=== PATIENT | female | born 1975 | race Caucasian/White ===

== ENCOUNTER → 2016-12-11 | Outpatient (CLI) | payer BC ==
[2005-10-10 07:58] VITALS: TEMP 98.3
[~2016-12-11] MED LIST: BIRTH CONTROL
== END ==
LOC: MC.RAD 09:39
DX: Z12.31 Encounter for screening mammogram for malignant neoplasm of breast (principal)

== ENCOUNTER → 2017-10-31 | Outpatient (CLI) | payer BC ==
[2005-10-10 07:58] VITALS: TEMP 98.3
== END ==
LOC: MC.RAD 11:00
DX: N63.21 Unspecified lump in the left breast, upper outer quadrant (principal)

== ENCOUNTER → 2018-07-01 | Outpatient (CLI) | payer BC ==
[2005-10-10 07:58] VITALS: TEMP 98.3
== END ==
LOC: MHCPAIN 08:23
DX: G89.29 Other chronic pain (principal); M47.817 Spondylosis without myelopathy or radiculopathy, lumbosacral region; M54.16 Radiculopathy, lumbar region; M53.3 Sacrococcygeal disorders, not elsewhere classified
CPT/HCPCS: G0463

== ENCOUNTER → 2018-07-03 | Outpatient (CLI) | payer BC ==
[2005-10-10 07:58] VITALS: TEMP 98.3
== END ==
LOC: MHCPAIN 08:56
DX: M47.817 Spondylosis without myelopathy or radiculopathy, lumbosacral region (principal); M54.16 Radiculopathy, lumbar region
CPT/HCPCS: J1100; Q9967

== ENCOUNTER → 2018-07-15 | Outpatient (CLI) | payer BC ==
[2005-10-10 07:58] VITALS: TEMP 98.3
== END ==
LOC: MHCPAIN 09:18
DX: G89.29 Other chronic pain (principal); M47.817 Spondylosis without myelopathy or radiculopathy, lumbosacral region; M54.16 Radiculopathy, lumbar region; M53.3 Sacrococcygeal disorders, not elsewhere classified
CPT/HCPCS: G0463

== ENCOUNTER → 2020-04-19 | Outpatient (CLI) | payer BC ==
[2005-10-10 07:58] VITALS: TEMP 98.3
== END ==
LOC: MC.RAD 10:29
DX: Z12.31 Encounter for screening mammogram for malignant neoplasm of breast (principal)

== ENCOUNTER 2021-10-27 07:05 | Day surgery (SDC) | payer BC ==
[~2021-10-27] VITALS: Ht 167.6 cm; Wt 86.6 kg
[2021-10-27 08:55] VITALS: BP 113/65; PULSE 70; TEMP 97.5
--- NOTE | 2021-10-27 08:55 | NUR ---
The patient arrived back to [facility] from the endoscopy suite at this time. The patient appears alert and oriented and ambulated from the cart to the recliner in her room with the stand by assistance of two nurses and appeared to tolerate the activity well. Post procedure vital signs were started at this time. The patient agrees to try some orange juice at this time. Fresh warm blanket was provided. Call light is within reach. at bedside. Denies any further needs.
[2021-10-27] MEDS ORDERED: WELLBUTRIN SR150 M1 PO (09:05)
[2021-10-27] MEDS ORDERED: SINGULAIR4 MG/PACKE PO (09:05)
[2021-10-27 09:10] VITALS: BP 116/76; PULSE 65
--- NOTE | 2021-10-27 09:10 | NUR ---
The patient appeared to tolerate the juice well and denies wanting anything further at this time. remains at her bedside. Call light is within reach. Denies any further needs.
[2021-10-27 09:19] VITALS: BP 134/94; PULSE 76; TEMP 98.2
[2021-10-27 09:25] VITALS: BP 117/70; PULSE 65
--- NOTE | 2021-10-27 09:25 | NUR ---
Dr. Gresham has spoke with the patient and her reguarding the findings of the procedure. She verbalizes a desire to be discharged home. Discharge instructions were reviewed with the patient and her at this time. They both verbalized understanding and have no questions for the nurse at this time. The patient's IV to her right hand was removed and a pressure dressing was applied to the site. The patient was instructed to get dressed and notify the staff when she is ready to be escorted out.
--- NOTE | 2021-10-27 09:35 | NUR ---
The patient was escorted out via wheelchair to a private vehicle by MARIA Santos. The patient's belongings and discharge paperwork were sent with her. The patient's is present to drive her home.
== END 2021-10-27 09:35 | disposition home or self-care (01) ==
LOC: SDCO 07:05
DX: D12.3 Benign neoplasm of transverse colon (principal); D12.4 Benign neoplasm of descending colon
CPT/HCPCS: J2704; J3010; J7120